=== PATIENT | male | born 1990 | race Two or more races ===

== ENCOUNTER 2020-09-20 23:03 | Emergency (ER) | payer SELFPAY ==
[~2020-09-20] VITALS: Ht 180.3 cm; Wt 79.8 kg
[2020-09-20 23:38] VITALS: BP 142/88
[2020-09-20] MEDS ORDERED: PENICILLIN G BENZATHINE 1,200,000 UNITS/2ML SYR IM ONE (23:45)
[2020-09-21] MEDS ORDERED: IBUP-2029 PO (00:05)
[2020-09-21] MEDS ORDERED: AMOX-494 PO (00:05)
== END 2020-09-21 00:21 | disposition home or self-care (01) ==
LOC: ER 23:03 → EDBD 23:03 → ER 09-21 00:21
DX: J03.90 Acute tonsillitis, unspecified (principal)
CPT/HCPCS: 96372; 99283; J0561